=== PATIENT | male | born 1970 | race Caucasian/White ===

== ENCOUNTER 2019-05-25 19:04 | Emergency (ER) | payer OTHER ==
[2019-05-25] MEDS ORDERED: FLU Vacc QS2019-20(6MOS+)/PF 60 MCG/0.5 ML SYRINGE IM ONE (19:30)
--- NOTE | 2019-05-25 19:36 | EDM.PDOC ---
ED HPI GENERAL MEDICAL PROBLEM - General Chief Complaint: Cardiovascular Problem Stated Complaint: high blood pressure dizzy and run down Time Seen by Provider: 05/25/19 19:26 - History of Present Illness INITIAL COMMENTS - FREE TEXT/NARRATIVE: 49-year-old male presents the emergency room with fatigue. This is been an ongoing problem getting worse over the last several weeks. Patient is treated for hypertension and has a hip that needs to be looked at by orthopedics otherwise she seems to be doing all right. The patient is very tired at the end of the day and just does not have any energy he is tried to work out a couple of times a week but at the end of his works out he is very short of breath and not able to do anything. He does not have a cough he has no chest pain chest pressure. He has had no leg swelling. Headache Pain Score (Numeric/FACES): 1 - Related Data Allergies Allergy/AdvReac Type Severity Reaction Status Date / Time No Known Allergies Allergy Verified 05/25/19 19:19 Home Meds: Home Meds Lisdexamfetamine Dimesylate [Vyvanse] 70 mg PO DAILY 05/25/19 [History] Simvastatin 40 mg PO DAILY 05/25/19 [History] amLODIPine Besylate [Amlodipine Besylate] 5 mg PO DAILY 05/25/19 [History] buPROPion HCl [Wellbutrin Xl] 300 mg PO DAILY 05/25/19 [History] hydrOXYzine HCL [Hydroxyzine HCl] 25 mg PO BEDTIME PRN 05/25/19 [History] hydroCHLOROthiazide [Hydrochlorothiazide] 12.5 mg PO DAILY 05/25/19 [History] traZODone HCl [Trazodone HCl] 50 mg PO BEDTIME PRN 05/25/19 [History] ED ROS GENERAL - Review of Systems Review Of Systems: See Below Constitutional: Reports: No Symptoms. Denies: Fever, Chills HEENT: Reports: No Symptoms Respiratory: Reports: No Symptoms Cardiovascular: Reports: No Symptoms. Denies: Palpitations Endocrine: Reports: Fatigue. Denies: No Symptoms GI/Abdominal: Reports: No Symptoms ED EXAM, GENERAL - Physical Exam Exam: See Below Exam Limited By: No Limitations General Appearance: Alert, No Apparent Distress Head: Atraumatic, Normocephalic Neck: Normal Inspection, Supple, Non-Tender, Full Range of Motion. No: Lymphadenopathy (L), Lymphadenopathy (R), Tender Midline, Thyromegaly Respiratory/Chest: No Respiratory Distress, Lungs Clear, Normal Breath Sounds Cardiovascular: Normal Peripheral Pulses, Regular Rate, Rhythm, No Edema, No Murmur Neurological: Alert, Oriented, Normal Cognition EKG INTERPRETATION EKG Date: 05/25/19 Rhythm: NSR [place]: Normal P-Wave: Present QRS: Normal ST-T: Normal QT: Normal Comparison: NA - No Prior EKG Course - Vital Signs Last Recorded V/S: Last Vital Signs Temp 36.7 C 05/25/19 19:14 Pulse 76 05/25/19 19:14 Resp 15 05/25/19 19:14 BP 128/104 H 05/25/19 19:14 Pulse Ox 98 05/25/19 19:14 - Orders/Labs/Meds Orders: Active Orders 24 hr Category Date Time Status EKG 12 Lead [EKG Documentation Completion] [RC] STAT Care 05/25/19 19:36 Active Influenza Vaccine Charge [RC] .DISCHARGE Care 05/25/19 19:25 Active Labs: Laboratory Tests 05/25/19 05/25/19 05/25/19 Range/Units 19:47 19:47 19:47 WBC 7.33 (4.23-9.07) K/mm3 RBC 4.93 (4.63-6.08) M/mm3 Hgb 14.6 (13.7-17.5) gm/dl Hct 41.6 (40.1-51.0) % MCV 84.4 (79.0-92.2) fl MCH 29.6 (25.7-32.2) pg MCHC 35.1 (32.2-35.5) g/dl RDW Std Deviation 41.3 (35.1-43.9) fL Plt Count 350 H (163-337) K/mm3 MPV 8.9 L (9.4-12.3) fl Neut % (Auto) 51.3 (34.0-67.9) % Lymph % (Auto) 35.1 (21.8-53.1) % Robertson % (Auto) 9.7 (5.3-12.2) % Eos % (Auto) 3.3 (0.8-7.0) Baso % (Auto) 0.5 (0.1-1.2) % Neut # (Auto) 3.76 (1.78-5.38) K/mm3 Lymph # (Auto) 2.57 (1.32-3.57) K/mm3 Robertson # (Auto) 0.71 (0.30-0.82) K/mm3 Eos # (Auto) 0.24 (0.04-0.54) K/mm3 Baso # (Auto) 0.04 (0.01-0.08) K/mm3 Sodium 139 (136-145) mEq/L Potassium 4.1 (3.5-5.1) mEq/L Chloride 102 (98-107) mEq/L Carbon Dioxide 27 (21-32) mEq/L Anion Gap 14.1 (5-15) BUN 14 (7-18) mg/dL Creatinine 1.2 (0.7-1.3) mg/dL Est Cr Clr Drug Dosing 82.30 mL/min Estimated GFR (MDRD) > 60 (>60) mL/min BUN/Creatinine Ratio 11.7 L (14-18) Glucose 88 (74-106) mg/dL Calcium 9.1 (8.5-10.1) mg/dL Total Bilirubin 0.2 (0.2-1.0) mg/dL AST 5 L (15-37) U/L ALT 26 (16-63) U/L Alkaline Phosphatase 107 (46-116) U/L NT-Pro-B Natriuret Pep 18 (0-125) pg/mL Total Protein 7.6 (6.4-8.2) g/dl Albumin 3.8 (3.4-5.0) g/dl Globulin 3.8 gm/dL Albumin/Globulin Ratio 1.0 (1-2) TSH 3rd Generation 1.739 (0.358-3.74) uIU/mL Meds: Medications Discontinued Medications Generic Name Dose Route Start Last Admin Trade Name Freq PRN Reason Stop Dose Admin Influenza Virus Vaccine 1 each 05/25/19 19:25 Pharmacy To Dose - Influenza Vaccine IM 05/25/19 19:26 ONETIME ONE Influenza Virus Vaccine 60 mcg 05/25/19 19:30 05/25/19 19:38 Fluzone Quad Syringe IM 05/25/19 19:31 60 mcg .ONCE ONE Administration - Re-Assessments/Exams Free Text/Narrative Re-Assessment/Exam: 05/25/19 21:42 Laboratory evaluation is unrevealing EKG does not show us anything I cannot find any evidence to what would be causing his symptoms at this point. He agrees to follow-up with his regular provider early next week it may be reasonable to pursue other avenues such as a sleep study or possibly a stress Cardiolite. Departure - Departure Time of Disposition: 21:43 Disposition: Home, Self-Care 01 Clinical Impression: Fatigue Referrals: Rosie Villalobos PA-C [Primary Care Provider] - Forms: ED Department Discharge Additional Instructions: Return to the emergency room with any questions problems or worsening symptoms. Follow-up in the clinic next week. Discuss seeing a counselor for the stress you have been under possibly having a stress test for your heart and consider a sleep study as it does not sound like you are sleeping appropriately and this can definitely affect her daytime energy. Sepsis Event Note - Evaluation Sepsis Screening Result: No Definite Risk - Focused Exam Vital Signs: Vital Signs Temp Pulse Resp BP Pulse Ox 05/25/19 19:14 36.7 C 76 15 128/104 H 98 Date Exam was Performed: 05/25/19 Time Exam was Performed: 21:42 - My Orders Last 24 Hours: My Active Orders 05/25/19 19:25 Influenza Vaccine Charge [RC] .DISCHARGE 05/25/19 19:36 EKG 12 Lead [EKG Documentation Completion] [RC] STAT - Assessment/Plan Last 24 Hours: My Active Orders 05/25/19 19:25 Influenza Vaccine Charge [RC] .DISCHARGE 05/25/19 19:36 EKG 12 Lead [EKG Documentation Completion] [RC] STAT
== END 2019-05-25 21:54 | disposition home or self-care (01) ==
LOC: JD.ED 19:04
DX: R53.83 Other fatigue (principal); I10 Essential (primary) hypertension; Z23 Encounter for immunization; Z79.899 Other long term (current) drug therapy
CPT/HCPCS: 36415; 80053; 83880; 84443; 85025; 90686; 93005; 93010; 99282; 99283-25; G0008